=== PATIENT | female | born 1960 | race Hispanic/Latino ===

== ENCOUNTER 2024-04-29 07:21 | Outpatient (CLI) | payer OTHER | END 2024-04-29 07:22 | disposition home or self-care (01) | LOC: CSHCT 07:21 | PROVIDERS: ATTEND Specialist | DX: Z82.49 Family history of ischemic heart disease and other diseases of the circulatory system (principal); I25.10 Atherosclerotic heart disease of native coronary artery without angina pectoris | CPT/HCPCS: 75571 ==